=== PATIENT | male | born 2000 | race Caucasian/White ===

== ENCOUNTER 2022-04-17 18:38 | Outpatient (CLI) | payer OTHER, SELFPAY ==
[2022-04-17 21:54] LABS: Albumin* 4.5 g/dL (3.3-5.0); Chloride* 98 mmol/L (96-114); Potassium* 4.3 mmol/L (3.6-5.1); Sodium* 137 mmol/L (135-149)
[2022-04-17 21:56] LABS: Aspartate Amino Transferase* 24 U/L (12-35); Bilirubin Total* 0.7 mg/dL (0.1-1.5); Carbon Dioxide* 29 mmol/L (20-32); Creatinine* 0.9 mg/dL (0.5-1.5); Estimated Glomerular Filt Rate 124 ml/min
[2022-04-17 21:57] LABS: Alanine Aminotransferase* 12 U/L (4-50); Alkaline Phosphatase* 83 U/L (40-150); Blood Urea Nitrogen* 15 mg/dL (5-24); Calcium* 9.5 mg/dL (8.4-10.6); Glucose* 100 mg/dL (60-115); Total Protein* 6.9 g/dL (6.0-8.3)
== END 2022-04-17 18:39 | disposition home or self-care (01) ==
LOC: NFLDUCREF 18:39
PROVIDERS: Visit Provider Nurse Practitioner Family
DX: B99.9 Unspecified infectious disease (principal)
CPT/HCPCS: 80053